=== PATIENT | male | born 1945 | race Caucasian/White ===

== ENCOUNTER 2016-08-09 04:48 | Inpatient (IN) | payer OTHER, MEDICARE ==
[~2016-08-09] VITALS: Ht 185.4 cm; Wt 120.2 kg
[~2016-08-09 04:48] MED LIST: ADVAIR DISKUS1 UNIT INH; ALBUTEROL1.25 MG/3 INH/SOL; ASPIRIN EC81 M1 PO; BREO ELLIPTA1 POW INH; CIPRO 500MG TA500 MG PO; LIPITOR40 M1 PO; PERCOCET 325 MG1 TA2 PO; PREDNISONE1 MG PO; PROAIR HFA0.09 MG/Ac INH; ZOFRAN ODT4 MG SL; ZYRTEC ALLERGY10 MG PO
--- NOTE | 2016-08-09 04:59 | NUR ---
PT BIBA C/O WEAKNESS, N/V X 2 DAYS. PT ALSO HAS REDNESS, WARMTH AND SWELLING TO R ARM S/P BUMPING INTO DOOR ON FRIDAY.
[2016-08-09] MEDS ORDERED: ADVAIR 500-501 EACH INH (05:00)
[2016-08-09] MEDS ORDERED: METFORMIN HCL750 M1 PO (05:01)
[2016-08-09] MEDS ORDERED: AMLODIPINE BESYL5 M1 PO (05:02)
[2016-08-09] MEDS ORDERED: GABAPENTIN300 M2 PO (05:03)
[2016-08-09] MEDS ORDERED: IBUPROFEN800 M1 (05:04)
--- NOTE | 2016-08-09 05:21 | NUR ---
PORTABLE CHEST XRAY BEING DONE AT BEDSIDE
[2016-08-09 05:36] LABS: ABSOLUTE BASOPHIL COUNT 0.2 /CUMM (0.0-0.2); ABSOLUTE EOSINOPHIL COUNT 0.3 /CUMM (0.0-0.7); ABSOLUTE GRANULOCYTE CT 14.3 /CUMM (1.4-6.5); ABSOLUTE LYMPH COUNT 2.5 /CUMM (1.2-3.4); ABSOLUTE MONOCYTE COUNT 1.6 /CUMM (0.10-0.60); EOSINOPHIL % 1.6 % (0-5); GRANULOCYTE % 75.5 % (42.2-75.2); HEMATOCRIT 42.7 % (42-52); MEAN CORPUSCULAR HGB 31.4 PG (27.0-31.0); MEAN CORPUSCULAR HGB CONC 33.6 G/DL (33.0-37.0); MEAN CORPUSCULAR VOLUME 93.3 FL (80.0-94.0); PLATELET COUNT 177 /CUMM (130-400); RED BLOOD CELL CT 4.57 /CUMM (4.70-6.10); WHITE BLOOD CELL COUNT 18.9 /CUMM (4.8-10.8)
--- NOTE | 2016-08-09 05:37 | ED GENERAL ADULT ---
History of Present Illness General Chief Complaint: Nausea, Vomiting, Diarrhea Stated Complaint: BIBA N/V Source: patient, family, old records, EMS Exam Limitations: no limitations Vital Signs & Intake/Output Vital Signs & Intake/Output Vital Signs Date Time Temp Pulse Resp B/P Pulse O2 O2 Flow FiO2 Ox Delivery Rate 08/09 0711 100.0 88 26 147/66 89 Room Air 08/09 0505 Room Air 08/09 0453 100.0 83 20 137/72 93 Room Air Allergies Coded Allergies: Penicillins (Severe, SWELLING 08/09/16) amoxicillin (Severe, HIVES, RASH, NAUSEA 08/09/16) azithromycin (UNKNOWN 08/09/16) erythromycin base (UNKNOWN 08/09/16) Reconcile Medications Amlodipine Besylate 5 MG TABLET 1 TAB PO DAILY BLOOD PRESSURE (Reported) Aspirin (Ecotrin) 81 MG TABLET.DR 2 TAB PO DAILY HEART HEALTH (Reported) Atorvastatin Calcium (Lipitor) 40 MG TABLET 1 TAB PO DAILY CHOLESTEROL ( Reported) Fluticasone/Salmeterol (Advair 500-50 Diskus) 500 MCG-50 MCG/DOSE BLST.W.DEV 1 PUF INH BID COPD (Reported) Gabapentin 300 MG CAPSULE 1 CAP PO TID NEUROPATHY (Reported) Ibuprofen 800 MG TABLET PAIN (Reported) Metformin HCl (Metformin HCl ER) 750 MG TAB.ER.24H 1 TAB PO BID DIABETES ( Reported) Prednisone 1 MG TABLET 7 MG PO DAILY COPD (Reported) Core Measure Meds Pre-Hospital aspirin Triage Note: PT BIBA C/O WEAKNESS, N/V X 2 DAYS. PT ALSO HAS REDNESS, WARMTH AND SWELLING TO R ARM S/P BUMPING INTO DOOR ON FRIDAY. Triage Nurses Notes Reviewed? yes Onset: 2 days Duration: day(s):, constant, continues in ED, getting worse Timing: recent history Injury Environment: home Severity: moderate Modifying Factors: Improves With: immobilization. Worsens With: movement. Associated Symptoms: back pain HPI: 1 week prior to admission patient began having increased back pain from spinal stenosis with increasing gabapentin dosage. He is become increasingly sleepy with more bed rest. 2 days prior to admission he struck his right shoulder edge of a door with subsequent redness to the area nausea vomiting decreased appetite and increasing weakness now unable to ambulate. There's been no diarrhea abdominal pain chest pain cough shortness of breath headache dysuria bleeding. Past History Travel History Traveled to [place] past 21 day No Medical History Any Pertinent Medical History? see below for history Neurological: NONE EENT: NONE Cardiovascular: NONE, myocardial infarction Respiratory: COPD Gastrointestinal: NONE Hepatic: NONE Renal: NONE Musculoskeletal: rheumatoid arthritis, spinal stenosis Psychiatric: NONE Endocrine: diabetes Blood Disorders: NONE Cancer(s): NONE RN CIRCULATING/Reproductive: NONE Influenza Vaccine: 12/10/13 Surgical History Surgical History: non-contributory Psychosocial History What is your primary language Finnish Tobacco Use: Quit >30 days ago ETOH Use: denies use Family History Hx Contributory? No Review of Systems Review of Systems Constitutional: Reports: see HPI, malaise, weakness. EENTM: Reports: no symptoms. Respiratory: Reports: see HPI, cough. Cardiovascular: Reports: no symptoms. GI: Reports: see HPI, nausea, vomiting. Genitourinary: Reports: no symptoms. Musculoskeletal: Reports: see HPI, back pain. Skin: Reports: see HPI, rash. Neurological/Psychological: Reports: no symptoms. Hematologic/Endocrine: Reports: no symptoms. Immunologic/Allergic: Reports: no symptoms. All Other Systems: Reviewed and Negative Physical Exam Physical Exam General Appearance: well developed/nourished, alert, awake, anxious, severe distress, obese Head: atraumatic, normal appearance Eyes: Bilateral: normal appearance, PERRL, EOMI. Ears, Nose, Throat: normal pharynx, dry mucous membranes Neck: normal inspection, supple, full range of motion, no midline tenderness Respiratory: chest non-tender, no respiratory distress, quiet respiration, decreased breath sounds Cardiovascular: regular rate/rhythm, normal peripheral pulses, norml femoral pulses equa Peripheral Pulses: 4+ carotid (R), 4+ carotid (L) Gastrointestinal: normal bowel sounds, soft, non-tender, no organomegaly Back: normal inspection, normal range of motion Extremities: normal capillary refill, normal range of motion, tenderness (R forearm) Neurologic/Psych: no motor/sensory deficits, awake, alert, oriented x 3, normal mood/affect, 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 Skin: rash (erythema over R forearm) Lymphatic: no anterior cervical crystal Core Measures ACS in differential dx? No CVA/TIA Diagnosis: No Severe Sepsis Present: No Septic Shock Present: No Progress Differential Diagnoses I considered the following diagnoses in my evaluation of the patient: Pneumonia cellulitis adverse medication reaction Plan of Care: Orders Procedure Date/time Status Consistent Carbohydrate 2 08/09 B Active LACTIC ACID 08/09 810 Active Patient Data 08/09 646 Active OXYGEN SETUP (GEN) 08/09 636 Active Saline Lock 08/09 636 Active Admit to inpatient 08/09 636 Active Vital Signs 08/09 636 Active Activity/Ambulation 08/09 636 Active Code Status 08/09 636 Active BLOOD CULTURE 08/09 510 Active URINALYSIS 08/09 510 Active LIPASE 08/09 510 Complete LACTIC ACID 08/09 510 Complete COMPREHENSIVE METABOLIC PANEL 08/09 510 Complete CBC WITHOUT DIFFERENTIAL 08/09 510 Complete EKG 08/09 510 Active Laboratory Tests 08/09/16 0510: Anion Gap 14, Estimated GFR > 60, BUN/Creatinine Ratio 22.0, Glucose 271 H, Lactic Acid 2.4 H, Calcium 9.5, Total Bilirubin 1.4 H, AST 22, ALT 53, Alkaline Phosphatase 66, Total Protein 7.0, Albumin 3.8, Globulin 3.2, Albumin/ Globulin Ratio 1.2, Lipase 356 H, CBC w Diff MAN DIFF ORDERED, RBC 4.57 L, MCV 93.3, MCH 31.4 H, RDW 13.0, MPV 10.0, Gran % 75.5 H, Lymphocytes % 13.4 L, Monocytes % 8.5, Eosinophils % 1.6, Basophils % 1.0, Absolute Granulocytes 14.3 H, Segmented Neutrophils 81 H, Absolute Lymphocytes 2.5, Lymphocytes 11 L, Monocytes 7, Absolute Monocytes 1.6 H, Eosinophils 1, Absolute Eosinophils 0.3, Absolute Basophils 0.2, Platelet Estimate ADEQUATE, Polychromasia 1+, Ovalocytes FEW, PUBS MCHC 33.6, Fld Total RBCs Counted 100 Microbiology 08/09 0505 BLOOD: Blood Culture - RECD 08/09 499 BLOOD: Blood Culture - RECD Diagnostic Imaging: Viewed by Me: Radiology Read. Discussed w/RAD: Radiology Read. CXR Impression: The retrocardiac airspace is not well visualized on this examination due to inherent limitations of AP portable technique. The possibility of left lower lobe pneumonia cannot be definitively excluded. Blunting of the left lateral costophrenic recess appears to be related to a prominent epicardial fat pad. Ideally a dedicated PA and lateral upright views of the chest should be obtained. Initial ED EKG: normal axis, normal intervals, normal p-waves, normal QRS complex, nonspecific ST T wave chg Prior EKG: unchanged Rhythm Strip: normal sinus rhythm Departure Departure Disposition: STILL A PATIENT Condition: Stable Clinical Impression Primary Impression: Cellulitis of arm, right Secondary Impressions: Dehydration Lactic acidosis Leukocytosis Qualifiers: Leukocytosis type: unspecified Qualified Code: D72.829 - Elevated white blood cell count, unspecified Nausea and vomiting Qualifiers: Vomiting type: unspecified Vomiting Intractability: non-intractable Qualified Code: R11.2 - Nausea with vomiting, unspecified Spinal stenosis Qualifiers: Spinal region: unspecified Qualified Code: M48.00 - Spinal stenosis , site unspecified Referrals: SHERRIE PALMA DO (PCP/Family) Departure Forms: Customer Survey General Discharge Information Admission Note Spoke With: JEREMIE JEFFERS,JOHN Documentation of Exam: Documentation of any treatments & extenuating circumstances including Concerns Regarding Discharge (functional status, medication knowledge or non-compliance, living conditions, etc.) that warrant an admission rather than observation: IV antibiotics IV steroids IV analgesia follow cultures medication adjustment continuing care discharge planning Critical Care Note Critical Care Note Critical Care Time: non-applicable
--- NOTE | 2016-08-09 05:48 | NUR ---
CRITICAL TEST RESULTS [id number] NICK UREÑA TESTS AND RESULTS: LACTIC = 2.4 Results received and read back by: MARIBELL STEVENS Results received date and time: 08/09/16 0548 The following provider was notified of the results, and read the results back: DR PERAZA Notified date and time: 08/09/16 at 0548
--- NOTE | 2016-08-09 05:57 | RADIOLOGY REPORT ---
EXAMINATION: XR PORTABLE CHEST CLINICAL INFORMATION: Pneumonia. Cough. Fever. Weakness. COMPARISON: Chest CT 02/09/2016. TECHNIQUE: Portable AP view of the chest was obtained. FINDINGS: The retrocardiac airspace cannot be definitively evaluated on this examination due to inherent limitations of AP portable technique. Specifically the possibility of a left lower lobe pneumonia cannot be definitively excluded. There is a prominent epicardial fat pad. No pleural effusion or pneumothorax. The cardiac silhouette and upper mediastinal contours are normal. No acute osseous finding. IMPRESSION: The retrocardiac airspace is not well visualized on this examination due to inherent limitations of AP portable technique. The possibility of left lower lobe pneumonia cannot be definitively excluded. Blunting of the left lateral costophrenic recess appears to be related to a prominent epicardial fat pad. Ideally a dedicated PA and lateral upright views of the chest should be obtained.
--- NOTE | 2016-08-09 07:02 | NUR ---
2ND AND 3RD LITERS INFUSING NOW
--- NOTE | 2016-08-09 07:02 | History & Physical ---
YOBANY ROACH 08/09/16 0702: General Information and HPI MD Statement: I have seen and personally examined NICK UREÑA and documented this H&P. The patient is a 71 year old M who presented with a patient stated chief complaint of [rednes of his right arm, increased lethargy]. Source of Information: patient, old records Exam Limitations: no limitations History of Present Illness: Mr. Ureña is a 71-year-old gentleman with a PMH of CAD s/p OR 1986 and cardiac catheterization, DM, HTN, HLD, COPD not on home O2, asthma, spinal stenosis, diverticulosis, tubular villous adenoma, nephrolithiasis S/P lithotripsy and stent placement (2014) who presented with complaints of right arm redness, swelling and lethargy. He reports hitting his elbow against a hard surface 5 days ago with noticeable pain and redness around the elbow. Alternating warm/cold compresses provided minimal relief. He denied any significant limitations in range of motion around the joint. Over the past few days he endorses increased erythema but denies any fevers or chills associated with this. Incidentally he saw his PCP yesterday at which point his gabapentin was increased from 300 mg TID up to 600 mg TID for his persistent back pain secondary to spinal stenosis. He became noticeably more lethargic last night unable to stay awake state evening. Out of concern for the redness and increased lethargy his called EMS. She thought that the symptoms in his arm may be secondary to a cat scratch but he denies recalling any such trauma. ROS: Chronic intermittent back pain, 2 episodes of nausea overnight. He denies any headache, dizziness, blurred vision, chest pain, palpitations, shortness of breath, vomiting, postprandial epigastric discomfort, changes in bowel/bladder habits him a numbness/weakness in his right upper extremity. Allergies/Medications Allergies: Coded Allergies: Penicillins (Severe, SWELLING 08/09/16) amoxicillin (Severe, HIVES, RASH, NAUSEA 08/09/16) azithromycin (UNKNOWN 08/09/16) erythromycin base (UNKNOWN 08/09/16) Home Med list Amlodipine Besylate 5 MG TABLET 1 TAB PO DAILY BLOOD PRESSURE (Reported) Aspirin (Ecotrin*) 81 MG TABLET.DR 2 TAB PO DAILY HEART HEALTH (Reported) Atorvastatin Calcium (Lipitor) 40 MG TABLET 1 TAB PO DAILY CHOLESTEROL ( Reported) Fluticasone/Salmeterol (Advair 500-50 Diskus) 500 MCG-50 MCG/DOSE BLST.W.DEV 1 PUF INH BID COPD (Reported) Gabapentin 300 MG CAPSULE 1 CAP PO TID NEUROPATHY (Reported) Ibuprofen 800 MG TABLET PAIN (Reported) Metformin HCl (Metformin HCl ER) 750 MG TAB.ER.24H 1 TAB PO BID DIABETES ( Reported) Prednisone 10 MG TABLET 1 TAB PO DAILY COPD (Reported) Past History Travel History Traveled to [place] past 21 day No Medical History Neurological: NONE EENT: NONE Cardiovascular: NONE, myocardial infarction Respiratory: COPD Gastrointestinal: NONE Hepatic: NONE Renal: NONE Musculoskeletal: rheumatoid arthritis, spinal stenosis Psychiatric: NONE Endocrine: diabetes Blood Disorders: NONE Cancer(s): NONE EXTENDER/Reproductive: NONE Influenza Vaccine: 12/10/13 Surgical History Surgical History: non-contributory Past Family/Social History Psychosocial History ETOH Use: denies use Review of Systems Review of Systems Constitutional: Reports: see HPI. EENTM: Reports: no symptoms. Cardiovascular: Reports: no symptoms. Respiratory: Reports: no symptoms. GI: Reports: see HPI. Genitourinary: Reports: no symptoms. Musculoskeletal: Reports: see HPI. Skin: Reports: see HPI. Neurological/Psychological: Reports: no symptoms. Exam & Diagnostic Data Last 24 Hrs of Vital Signs/I&O Vital Signs Date Time Temp Pulse Resp B/P Pulse O2 O2 Flow FiO2 Ox Delivery Rate 08/09 0854 99.2 08/09 0711 100.0 88 26 147/66 89 Room Air 08/09 0505 Room Air 08/09 0453 100.0 83 20 137/72 93 Room Air Intake & Output 08/09 1600 08/09 0800 08/09 0000 Intake Total 1000 0 Output Total Balance 1000 0 Intake, IV 1000 Intake, Oral 0 Patient 264 lb Weight Physical Exam General Appearance Alert, Cooperative, No Acute Distress Skin diffuse erythema over the lateral aspect of his right forearm, nonfluctuant , slightly raised, no exquisite tenderness to palpation, well defined margins, measuring approximately 5cm X 20cm HEENT EOMI, Mucous Membr. moist/pink Cardiovascular Regular Rate, Normal S1, Normal S2, occasional skip beats Lungs Normal Air Movement, distant breath sounds Abdomen Normal Bowel Sounds, Soft, No Tenderness, distended abdomen with no tenderness to palpation Neurological Normal Speech, Strength at 5/5 X4 Ext, Normal Tone Extremities Normal Pulses, 1+ pitting edema bilateral lower extremities Vascular Pulses Symmetrical Last 24 Hrs of Labs/Eliecre: Laboratory Tests 08/09/16 0847: Lactic Acid 0.8 08/09/16 0510: Anion Gap 14, Estimated GFR > 60, BUN/Creatinine Ratio 22.0, Glucose 271 H, Lactic Acid 2.4 H, Calcium 9.5, Total Bilirubin 1.4 H, AST 22, ALT 53, Alkaline Phosphatase 66, Troponin I 0.03, Total Protein 7.0, Albumin 3.8, Globulin 3.2, Albumin/Globulin Ratio 1.2, Lipase 356 H, CBC w Diff MAN DIFF ORDERED, RBC 4.57 L, MCV 93.3, MCH 31.4 H, RDW 13.0, MPV 10.0, Gran % 75.5 H, Lymphocytes % 13.4 L, Monocytes % 8.5, Eosinophils % 1.6, Basophils % 1.0, Absolute Granulocytes 14.3 H, Segmented Neutrophils 81 H, Absolute Lymphocytes 2.5, Lymphocytes 11 L, Monocytes 7, Absolute Monocytes 1.6 H, Eosinophils 1, Absolute Eosinophils 0.3, Absolute Basophils 0.2, Platelet Estimate ADEQUATE, Polychromasia 1+, Ovalocytes FEW, PUBS MCHC 33.6, Fld Total RBCs Counted 100 Microbiology 08/09 0505 BLOOD: Blood Culture - RECD 08/09 0500 BLOOD: Blood Culture - RECD Diagnostic Data EKG Results Sinus tachycardia, HR 107,. Ventricular premature complexes. Probable inferior infarct, age indeterminate. Consider. MA interval 136. QTC 438 CXR Results The retrocardiac airspace is not well visualized on this examination due to inherent limitations of AP portable technique. The possibility of left lower lobe pneumonia cannot be definitively excluded. Blunting of the left lateral costophrenic recess appears to be related to a prominent epicardial fat pad. Ideally a dedicated PA and lateral upright views of the chest should be obtained. Assessment/Plan Assessment: 71-year-old gentleman with a PMH of CAD s/p OR 1986 and cardiac catheterization, DM, HTN, HLD, COPD not on home O2, asthma, spinal stenosis, diverticulosis, tubular villous adenoma, nephrolithiasis S/P lithotripsy and stent placement ( 2014) who presented with complaints of right arm redness, swelling and lethargy. VS on admission: BP 137/72, HR 83, RR 20, SPO2 93% on RA, T 100.0 Pertinent labs: WBC 18.9, H&H 14.4/42.7, platelets 177, sodium 135, potassium 3.8, chloride 96, BUN/CR 22/1.0, glucose 271 Lactic acid: 2.0 T bilirubin: 1.4 Lipase: 356 Problem list: 1. Erythma and swelling of the RUE. DDx cellulitis vs lymphedema 2. Increased lethargy 3. Elevated lactic acid 4. SIRS criteria: WBC 18.9, RR 26. Sepsis guidelines 5. Elevated bilirubin and lipase 6. ST depressions V2/V3 with history of CAD 7. Diabetes 8. Hypertension 9. COPD/asthma 10. Spinal stenosis with chronic back pain Plan: 1. Cellulitis of right upper extremity in the setting of trauma & skwin breakdown * No evidence of hemarthrosis/point tenderness of the right elbow to justify imaging at this time. Follow up blood cultures * In the setting of multiple anabiotic allergies, will start him on IV clindamycin * Follow up blood Cx * Duration of therapy will likely be 10-14 days * We jenni monitor for diarrhea while on clindamycin 2. Increased lethargy * This can be attributed to his increased dosage of gabapentin. We'll continue to hydrate and maintain the patient on his previous dose of 300 mg TID * Physical therapy to assess patient 3. Elevated lactic acid * Repeat lactic acid 0.8. Resolved s/p 4 L crystalloid resuscitation 4. SIRS criteria: WBC 18.9, RR 26 * Follow blood cultures in the setting of possible cellulitis. However, leukocytosis could also be attributed to demargination in the setting of maintenance prednisone 10 mg * Repeat lactic acid down to 0.8 * Continue with doxycycline 5. Elevated bilirubin and lipase * Patients mother in her 50s of complications of ?? Gallbladder CA. Sister had her gallbladder taken out early age due to gallstones * Elevation in bilirubin and lipase unclear at this time * Repeat in 24hrs. If continued increase, will consider abdominal US 6. ST depressions V2/V3 with history of CAD * Patient denies any exertional dyspnea, chest pain, symptoms of orthopnea or PND * Repeat EKG/troponin at 1100 * Cardiology follow-up. Patient currently not on beta kathi that he may benefit from 7. Diabetes * Accu-Cheks and low-dose sliding scale 8. Hypertension * Continue home dose amlodipine 5 mg stable 9. COPD/asthma * Advair substituted with Symbicort * TRCs * Continue with prednisone 10 mg maintenance 10. Spinal stenosis with chronic back pain * We'll continue the patient on gabapentin 300 mg TID * Physical therapy evaluation Diet: Consistent carbohydrate 3 DVT prophylaxis: Lovenox 40 mg subcutaneous Full code As Ranked By This Provider Problem List: 1. Cellulitis of arm, right 2. Lactic acidosis 3. Lethargy 4. SIRS (systemic inflammatory response syndrome) Core Measures/Miscellaneous Acute Coronary Syndrome ACS Diagnosis: No Cerebrovascular Accident CVA/TIA Diagnosis: No Congestive Heart Failure CHF Diagnosis: No Venous Thromboembolism VTE Risk Factors: Age > 40 No [facility] VTE prophylaxis d/t: No contraindications No VTE Pharm Prophylaxis d/t: No contraindications VTE Diagnosis: No VTE Type: NONE VTE Confirmed by (Test): NONE Severe Sepsis Severe Sepsis Present: No Septic Shock Septic Shock Present: No Miscellaneous Documentation Attending Case Discussed With: JOHN CHAO MD Primary Care Physician: SHERRIE PALMA DO Patient sees these Specialists Lino Hernandez MD (pulmonology) Dr. Balbuena (cardiology) Dr. Emanuel (orthopedics) Level of Patient Care: General Medicine Resident Review Statement Resident Statement: examined this patient, discussed with tax intern, agreed with tax intern, discussed with family, reviewed EMR data (avail), discussed with nursing , reviewed images GASTON MALDONADO MD 08/09/16 1426: Attending MD Review Statement Attending Statement Attending MD Statement: examined this patient, discuss w/resident/PA/HYDRO OPERATOR, agreed w/resident/PA/HYDRO OPERATOR, discussed with family, reviewed EMR data (avail), discussed with nursing, discussed with case mgmt, reviewed images Attending Assessment/Plan: 71-year-old male who takes metformin for diabetes and chronic prednisone dependence for COPD who is here with right forearm redness and swelling. This all happened after some trauma of bumping his hand. The redness and erythema is diffuse and crosses the elbow joint into his upper arm but he has no restriction of range of motion of his elbow joint. It appears to be all the skin and soft tissue infection with no septic arthritis or bursitis. He's pen allergic and reports anaphylaxis to penicillin although from what we can seen 2002 he does appear to have gotten 1 dose of ceftriaxone. However I'm not completely sure as that was 2002 and his thinks that he got short of breath after getting that so we will err on the safe side and get blood cultures and start him on IV clindamycin. That will cover staph and strep for a straightforward cellulitis. He is chronically prednisone-dependent and has leukocytosis so we'll need to watch that and continue his usual steroid dose. Fingersticks and insulin sliding scale, he was hydrated for his sepsis criteria and appears to be better from that standpoint. We'll get an x-ray of the elbow joint is to make sure there is no effusion, DVT prophylaxis and follow closely.
--- NOTE | 2016-08-09 07:50 | NUR ---
RECEIVED REPORT ON PT AND NOTED RESTING ON STRETCHER WITH NS INFUSING PT DENIES ANY COMPLAINTS AT PRESENT AND AWARE WE NEED A URINE SAMPLE. SPOUSE AT BEDSIDE WITH PT
--- NOTE | 2016-08-09 07:50 | NUR ---
PT'S O2 SAT 85% ON RA WHEN FALLING ASLEEP. PT PLACED ON 2L NC OXYGEN WITH IMPROVEMENT TO 93%. WILL CONTINUE TO MONITOR.
--- NOTE | 2016-08-09 08:01 | NUR ---
PT HAS IV FOURTH LITER INFUSING
--- NOTE | 2016-08-09 08:30 | NUR ---
HOUSE STAFF AT BEDSIDE TO EVAL PT
--- NOTE | 2016-08-09 08:48 | NUR ---
REPEAT LACTIC SENT
[2016-08-09] MEDS ORDERED: PREDNISONE10 M2 PO ×2 (08:50→15:11)
--- NOTE | 2016-08-09 09:50 | NUR ---
FOOD TRAY HAS BEEN ORDERED BY JUNE LEXY
[2016-08-09 10:46] VITALS: BP 128/60
--- NOTE | 2016-08-09 12:35 | NUR ---
PT WAS EVALUATED BY PHYSICAL THERAPY
--- NOTE | 2016-08-09 12:50 | NUR ---
PT MEDICATED ORDERED WITH INSULIN AND ALSO WAS GIVEN MEAL TRAY
--- NOTE | 2016-08-09 14:08 | NUR ---
PT GIVEN MEAL TRAY
--- NOTE | 2016-08-09 14:26 | Admission Certification ---
Admission Certification Certification Statement - As attending physician, I certify that at the time of - admission, based on clinical presentation, severity of - symptoms, need for further diagnostic testing and - therapeutic interventions, and risk of adverse outcomes - without in-hospital treatment, in my clinical assessment, - this patient requires an acute hospital stay for a minimum - of two nights or longer. I have also considered psychsocial - factors such as support system, advanced age, financial - issues, cognitive issues, and failed out-patient treatments, - past re-admission history, safety of patient, and lack of - compliance as applicable. Specific rationale supporting this admission is: Acute cellulitis in a diabetic with prednisone-dependent needs IV antibiotics.
[2016-08-09 14:39] VITALS: BP 107/55
--- NOTE | 2016-08-09 14:47 | NUR ---
PT ADMITTED TO ROOM [id number]
--- NOTE | 2016-08-09 15:10 | RADIOLOGY REPORT ---
EXAMINATION: XR ELBOW, RIGHT CLINICAL INFORMATION: Pain and swelling. Diffuse erythema to the elbow and forearm. COMPARISON: None TECHNIQUE: AP and lateral views of the right elbow. FINDINGS: There is no evidence of acute fracture or dislocation. No definite evidence to suggest joint effusion. Soft tissue swelling is noted over the posterior aspect of the distal humerus, elbow extending into the forearm. Small ossific/calcific densities adjacent to the bilateral humeral epicondyles reflect degenerative changes or changes of calcific tendinitis. No evidence of radiopaque foreign body or soft tissue air. IMPRESSION: No evidence of acute fracture or dislocation in the right elbow, visualized distal humerus and proximal radius and ulna. Degenerative changes at the elbow. Soft tissue swelling over the posterior aspect of the elbow, distal arm and proximal forearm. No convincing radiographic evidence of joint effusion.
--- NOTE | 2016-08-09 15:47 | NUR ---
PT MEDICATED ORDERED AND ATTEMPTING TO GIVE REPORT TO NURSE
[2016-08-09 22:10] VITALS: BP 130/70
--- NOTE | 2016-08-09 23:22 | NUR ---
AT APPROX 2100. PT BLOOD SUGAR 468. NO BEDTIME COVERAGE ORDERED AT THIS TIME. MD ESCOBAR MADE AWARE. AND 8 UNITS NOVOLOG WAS ORDERED AND ADMINISTERED. PER MD, TO RE-CHECK BLOOD SUGAR TWO HOURS AFTER ADMINISTRATION OF INSULIN. WILL CONT TO CLOSELY MONITOR.
[2016-08-10 06:58] VITALS: BP 130/70
[2016-08-10 08:16] LABS: ABSOLUTE BASOPHIL COUNT 0 /CUMM (0.0-0.2); ABSOLUTE EOSINOPHIL COUNT 0 /CUMM (0.0-0.7); ABSOLUTE GRANULOCYTE CT 18.9 /CUMM (1.4-6.5); ABSOLUTE LYMPH COUNT 1.4 /CUMM (1.2-3.4); ABSOLUTE MONOCYTE COUNT 1.6 /CUMM (0.10-0.60); BASOPHIL % 0 % (0.0-2.0); EOSINOPHIL % 0.1 % (0-5); GRANULOCYTE % 86.3 % (42.2-75.2); HEMATOCRIT 40.2 % (42-52); MEAN CORPUSCULAR HGB 31.1 PG (27.0-31.0); MEAN CORPUSCULAR HGB CONC 33.2 G/DL (33.0-37.0); MEAN CORPUSCULAR VOLUME 93.9 FL (80.0-94.0); MEAN PLATELET VOLUME 10.3 FL (7.4-10.4); PLATELET COUNT 220 /CUMM (130-400); RBC DISTRIBUTION WIDTH 13.1 % (11.5-14.5); RED BLOOD CELL CT 4.28 /CUMM (4.70-6.10)
--- NOTE | 2016-08-10 08:43 | PN- Housestaff ---
KARL SORENSON 08/10/16 0843: Subjective Follow-up For: right arm cellulitis Complaints: no complaints Subjective: Patient was seen and examined this morning. He was sitting comfortably in bed without any complaints. Area of his cellulitis on right arm is better than yesterday. At any joint pain or restrictor joint movement. He remained afebrileher WBC count is elevated to21.9 from 18.9. Review of Systems Constitutional: Denies: chills, diaphoresis, fever. Cardiovascular: Denies: chest pain, edema. Respiratory: Denies: cough, hemoptysis. Gastrointestinal: Denies: constipation, diarrhea. Genitourinary: Denies: dysuria, frequency. Objective Last 24 Hrs of Vital Signs/I&O Vital Signs Date Time Temp Pulse Resp B/P Pulse O2 O2 Flow FiO2 Ox Delivery Rate 08/10 0658 97.4 74 20 130/70 91 Room Air 08/09 2210 97.6 77 20 130/70 92 Room Air 08/09 2036 Room Air Room Air 08/09 1439 96.7 62 18 107/55 96 Room Air 08/09 1342 97.0 61 119/60 08/09 1046 96.5 70 19 128/60 95 Room Air 08/09 1033 97.0 80 18 123/78 96 Nasal 2.0L Cannula 08/09 0951 96.5 70 19 128/60 95 Room Air Intake & Output 08/10 1600 08/10 0800 08/10 0000 Intake Total 330 460 Output Total Balance 330 460 Intake, IV 90 100 Intake, Oral 240 360 Physical Exam General Appearance: Alert, Oriented X3, Cooperative, No Acute Distress Skin: right arm redness and cellulitis crossing the elbow without any joint restriction HEENT: Atraumatic, PERRLA Cardiovascular: Normal S1, Normal S2, No Murmurs Lungs: Normal Air Movement Abdomen: Soft Extremities: right arm cellulitis crossing elbow Current Medications: Current Medications Sig/Dalia Start time Last Medication Dose Route Stop Time Status Admin Acetaminophen 650 MG Q6P PRN 08/09 0900 AC PO Amlodipine Besylate 5 MG DAILY 08/09 1000 AC 08/09 PO 0940 Aspirin Buffered 162 MG DAILY 08/09 1000 AC 08/09 PO 0940 Atorvastatin Calcium 40 MG DAILY 08/09 1000 AC 08/09 PO 0940 Budesonide/ 2 PUF BID 08/09 1000 AC 08/09 Formoterol Fumarate INH 2224 Clindamycin 600 MG IQ8 08/09 1600 AC 08/10 Dextrose/Water 50 ML IV 0849 Enoxaparin Sodium 40 MG DAILY 08/09 1000 AC 08/09 SC 0940 Gabapentin 0 .STK-MED ONE 08/09 1533 DC PO Gabapentin 300 MG TID 08/09 1000 AC 08/09 PO 2224 Insulin Aspart 4 UNITS ONCE ONE 08/10 0030 DC 08/10 SC 08/10 0031 0023 Insulin Aspart 8 UNITS ONCE ONE 08/09 2130 DC 08/09 SC 08/09 2130 2225 Insulin Aspart 0 TIDAC 08/09 1200 AC 08/10 SC 0849 Oxycodone/ 1 TAB Q6P PRN 08/09 0900 AC Acetaminophen PO Oxycodone/ 2 TAB Q6P PRN 08/09 0900 AC Acetaminophen PO Prednisone 0 .STK-MED ONE 08/09 1533 DC PO Prednisone 10 MG DAILY 08/09 1512 AC 08/09 PO 1546 Last 24 Hrs of Lab/Eliecer Results Last 24 Hrs of Labs/Mics: Laboratory Tests 08/10/16 0700: Anion Gap 15, Estimated GFR > 60, BUN/Creatinine Ratio 35.6 H, CBC w Diff NO MAN DIFF REQ, RBC 4.28 L, MCV 93.9, MCH 31.1 H, RDW 13.1, MPV 10.3, Gran % 86.3 H, Lymphocytes % 6.4 L, Monocytes % 7.2, Eosinophils % 0.1, Basophils % 0 L, Absolute Granulocytes 18.9 H, Absolute Lymphocytes 1.4, Absolute Monocytes 1.6 H, Absolute Eosinophils 0, Absolute Basophils 0, PUBS MCHC 33.2 08/09/16 1123: Troponin I 0.02 08/09/16 1120: Urine Color YEL, Urine Clarity CLEAR, Urine pH 6.0, Ur Specific [place] 1.020, Urine Protein TRACE H, Urine Ketones 15 H, Urine Nitrite NEG, Urine Bilirubin NEG, Urine Urobilinogen 0.2, Ur Leukocyte Esterase NEG, Ur Microscopic SEDIMENT EXAMINED, Urine RBC 1-3, Ur Epithelial Cells FEW, Urine Bacteria FEW H, Urine Mucus MOD H, Urine Hemoglobin SMALL H, Urine Glucose >=1000 H Assessment/Plan Assessment: 1-year-old gentleman with a PMH of CAD s/p [place] 1986 and cardiac catheterization, DM, HTN, HLD, COPD not on home O2, asthma, spinal stenosis, diverticulosis, tubular villous adenoma, nephrolithiasis S/P lithotripsy and stent placement ( 2014) who presented with complaints of right arm redness, swelling and lethargy. VS on admission: BP 137/72, HR 83, RR 20, SPO2 93% on RA, T 100.0 Pertinent labs: WBC 18.9, H&H 14.4/42.7, platelets 177, sodium 135, potassium 3.8, chloride 96, BUN/CR 22/1.0, glucose 271 Lactic acid: 2.0 T bilirubin: 1.4 Lipase: 356 Problem list: 1. Erythma and swelling of the RUE. DDx cellulitis vs lymphedema 2. Increased lethargy 3. Elevated lactic acid 4. SIRS criteria: WBC 18.9, RR 26. Sepsis guidelines 5. Elevated bilirubin and lipase 6. ST depressions V2/V3 with history of CAD 7. Diabetes 8. Hypertension 9. COPD/asthma 10. Spinal stenosis with chronic back pain Plan: 1. Cellulitis vs lympedema of right upper extremity * No evidence of hemarthrosis/point tenderness of the right elbow to justify imaging at this time. Follow up blood cultures * In the setting of multiple anabiotic allergies, will maintain the patient on clindamycin 2. Increased lethargy * This can be attributed to his increased dosage of gabapentin. * Her gabapentin dose was reduced and patient is currently doing fine 3. Elevated lactic acid * Repeat lactic acid 0.8. Resolved s/p 4 L crystalloid resuscitation 4. SIRS criteria: WBC 21.9, RR 26 * Follow blood cultures in the setting of possible cellulitis. However, leukocytosis could also be attributed to demargination in the setting of maintenance prednisone 10 mg * Repeat lactic acid down to 0.8 * Continue with clindamycin 5. ST depressions V2/V3 with history of CAD * Patient denies any exertional dyspnea, chest pain, symptoms of orthopnea or PND * Repeat EKG/troponin at 1100 * Cardiology follow-up. Patient currently not on beta kathi that he may benefit from 8. Diabetes * Accu-Cheks and low-dose sliding scale 8. Hypertension * Continue home dose amlodipine 5 mg stable 9. COPD/asthma * Advair substituted with Symbicort * TRCs * Continue with prednisone 10 mg maintenance 10. Spinal stenosis with chronic back pain * We'll continue the patient on gabapentin 300 mg TID * Physical therapy evaluation Diet: Consistent carbohydrate 3 DVT prophylaxis: Lovenox 40 mg subcutaneous Full code Problem List: 1. Spinal stenosis 2. Cellulitis of arm, right Pain Ratin Pain Location: Right arm Pain Goal: Remain pain free Pain Plan: Percocet Tomorrow's Labs & Rationales: CBC and Bep DVT/Prophylaxis: pharmacological EDEN JEFFERS,AMIR 08/10/16 1115: Attending MD Review Statement Attending Statement Attending MD Statement: examined this patient, discuss w/resident/PA/FOOD AND BEVERAGE ASSISTANT, agreed w/resident/PA/FOOD AND BEVERAGE ASSISTANT, discussed with family, reviewed EMR data (avail), discussed with nursing Attending Assessment/Plan: Mr. Toledo was seen by me. Chart reviewed. Very pleasant elderly man, sitting comfortably. Currently reports improvement in his arm/elbow swelling and pain, denies f/c/n/v. VSS. remains afebrile on IV abx and tolerating it well. WBC remains elevated, so check CBC in am. If trending down can switch to PO abx and likely D/C
[2016-08-10 09:18] LABS: WHITE BLOOD CELL COUNT 21.9 /CUMM (4.8-10.8)
[2016-08-10 14:34] VITALS: BP 114/55
[2016-08-10 21:56] VITALS: BP 120/82
[2016-08-11 07:47] VITALS: BP 122/72
[2016-08-11 08:17] LABS: ABSOLUTE BASOPHIL COUNT 0 /CUMM (0.0-0.2); ABSOLUTE EOSINOPHIL COUNT 0.4 /CUMM (0.0-0.7); ABSOLUTE GRANULOCYTE CT 8.6 /CUMM (1.4-6.5); ABSOLUTE LYMPH COUNT 1.8 /CUMM (1.2-3.4); ABSOLUTE MONOCYTE COUNT 0.8 /CUMM (0.10-0.60); BASOPHIL % 0.2 % (0.0-2.0); EOSINOPHIL % 3.1 % (0-5); MEAN CORPUSCULAR HGB 31.6 PG (27.0-31.0); MEAN CORPUSCULAR HGB CONC 33.8 G/DL (33.0-37.0); MEAN CORPUSCULAR VOLUME 93.7 FL (80.0-94.0); MEAN PLATELET VOLUME 10.1 FL (7.4-10.4); PLATELET COUNT 169 /CUMM (130-400); RED BLOOD CELL CT 3.73 /CUMM (4.70-6.10); WHITE BLOOD CELL COUNT 11.6 /CUMM (4.8-10.8)
[2016-08-11 08:39] VITALS: BP 112/70
--- NOTE | 2016-08-11 10:29 | PN- Housestaff ---
Subjective Follow-up For: Right upper extremity cellulitis Complaints: getting better Subjective: Patient says he is getting better, is comfortable, vitals stable, no issues overnight. Rash over hand seems to have decreased. Review of Systems Constitutional: Reports: no symptoms. Cardiovascular: Reports: no symptoms. Respiratory: Reports: no symptoms. Gastrointestinal: Reports: no symptoms. Genitourinary: Reports: no symptoms. Musculoskeletal: Reports: see HPI. Skin: Reports: see HPI. Objective Last 24 Hrs of Vital Signs/I&O Vital Signs Date Time Temp Pulse Resp B/P Pulse O2 O2 Flow FiO2 Ox Delivery Rate 08/11 0839 80 112/70 08/11 0747 98.5 70 20 122/72 97 Room Air 08/10 2156 98.7 74 18 120/82 94 Room Air Intake & Output 08/11 1600 08/11 0800 08/11 0000 Intake Total 650 450 75 Output Total Balance 650 450 75 Intake, IV 50 90 75 Intake, Oral 600 360 Physical Exam General Appearance: Alert, Oriented X3, Cooperative, No Acute Distress Skin: decreased right upper extremity weakness Cardiovascular: Regular Rate, Normal S1, Normal S2 Lungs: Clear to Auscultation Abdomen: Normal Bowel Sounds, Soft, No Tenderness Current Medications: Current Medications Sig/Dalia Start time Last Medication Dose Route Stop Time Status Admin Acetaminophen 650 MG .STK-MED ONE 08/11 0733 DC PO 08/11 0734 Acetaminophen 650 MG Q6P PRN 08/09 0900 DCD 08/11 PO 0738 Amlodipine Besylate 5 MG DAILY 08/09 1000 DCD 08/11 PO 0839 Aspirin Buffered 162 MG DAILY 08/09 1000 DCD 08/11 PO 0834 Atorvastatin Calcium 40 MG DAILY 08/09 1000 DCD 08/11 PO 0834 Budesonide/ 2 PUF BID 08/09 1000 DCD 08/11 Formoterol Fumarate INH 0835 Clindamycin 600 MG IQ8 08/09 1600 DCD 08/11 Dextrose/Water 50 ML IV 0834 Enoxaparin Sodium 40 MG DAILY 08/09 1000 DCD 08/11 SC 0835 Gabapentin 300 MG TID 08/09 1000 DCD 08/11 PO 0835 Insulin Aspart 0 TIDAC/HS 08/10 2130 DCD 08/11 SC 1129 Insulin Aspart 0 TIDAC 08/10 2100 DC SC Insulin Aspart 0 TIDAC 08/09 1200 DC 08/10 SC 1749 Oxycodone/ 1 TAB Q6P PRN 08/09 0900 DCD Acetaminophen PO Oxycodone/ 2 TAB Q6P PRN 08/09 0900 DCD Acetaminophen PO Prednisone 10 MG DAILY 08/09 1512 DCD 08/11 PO 0835 Last 24 Hrs of Lab/Eliecer Results Last 24 Hrs of Labs/Mics: Laboratory Tests 08/11/16 0635: Anion Gap 5, Estimated GFR > 60, BUN/Creatinine Ratio 31.1 H, CBC w Diff NO MAN DIFF REQ, RBC 3.73 L, MCV 93.7, MCH 31.6 H, RDW 13.0, MPV 10.1, Gran % 74.0, Lymphocytes % 15.9 L, Monocytes % 6.8, Eosinophils % 3.1, Basophils % 0.2, Absolute Granulocytes 8.6 H, Absolute Lymphocytes 1.8, Absolute Monocytes 0.8 H, Absolute Eosinophils 0.4, Absolute Basophils 0, PUBS MCHC 33.8 Assessment/Plan Assessment: 71-year-old gentleman with a PMH of CAD s/p [place] 1986 and cardiac catheterization, DM, HTN, HLD, COPD not on home O2, asthma, spinal stenosis, diverticulosis, tubular villous adenoma, nephrolithiasis S/P lithotripsy and stent placement ( 2014) who presented with complaints of right arm redness, swelling and lethargy. VS on admission: BP 137/72, HR 83, RR 20, SPO2 93% on RA, T 100.0 Pertinent labs: WBC 18.9, H&H 14.4/42.7, platelets 177, sodium 135, potassium 3.8, chloride 96, BUN/CR 22/1.0, glucose 271 Lactic acid: 2.0 T bilirubin: 1.4 Lipase: 356 Problem list: 1. Erythma and swelling of the RUE. DDx cellulitis vs lymphedema 2. Increased lethargy 3. Elevated lactic acid 4. SIRS criteria: WBC 18.9, RR 26. Sepsis guidelines 5. Elevated bilirubin and lipase 6. ST depressions V2/V3 with history of CAD 7. Diabetes 8. Hypertension 9. COPD/asthma 10. Spinal stenosis with chronic back pain Plan: 1. Cellulitis vs lympedema of right upper extremity * Patient was on IV clindamycin, is improving, and can be sent home with by mouth clindamycin. * His blood is positive for coag negative staph aureus, which is possibly a contamination 2. Increased lethargy * This can be attributed to his increased dosage of gabapentin. * His gabapentin dose was reduced and patient is currently doing fine 3. Elevated lactic acid * Repeat lactic acid 0.8. Resolved s/p 4 L crystalloid resuscitation 4. SIRS criteria: WBC 21.9, RR 26 * Follow blood cultures in the setting of possible cellulitis. However, leukocytosis could also be attributed to demargination in the setting of maintenance prednisone 10 mg * Repeat lactic acid down to 0.8 * Clindamycin changed from IV to by mouth today 5. ST depressions V2/V3 with history of CAD * Patient denies any exertional dyspnea, chest pain, symptoms of orthopnea or PND * Cardiology follow-up as outpatient 8. Diabetes * Accu-Cheks and low-dose sliding scale 8. Hypertension * Continue home dose amlodipine 5 mg stable 9. COPD/asthma * Advair substituted with Symbicort * TRCs * Continue with prednisone 10 mg maintenance 10. Spinal stenosis with chronic back pain * We'll continue the patient on gabapentin 300 mg TID * Physical therapy evaluation Diet: Consistent carbohydrate 3 DVT prophylaxis: Lovenox 40 mg subcutaneous Full code Problem List: 1. Cellulitis of arm, right Pain Ratin Pain Location: Right upper extremity Pain Goal: Pain 4 or less Pain Plan: prn Tomorrow's Labs & Rationales: -
[2016-08-11] MEDS ORDERED: CLINDAMYCIN HC300 M1 PO (11:45)
--- NOTE | 2016-08-11 11:49 | Patient Discharge Instructions ---
Discharge Instructions General Discharge Information You were seen/treated for: Right upper extremity cellulitis Special Instructions: Follow-up with her primary care physician within 7-10 days of discharge. Return to emergency if symptoms worsen. Please take your antibiotics for a total of 10 days, including orally for the next 7 days +1 dose. A rolling walker has been prescribed to you. Please collected from your pharmacy. Diet Continue normal diet: No Recommended Diet: Diabetic Activity Full Activity/No Limits: Yes Activity Self Limited: Yes Acute Coronary Syndrome Inclusion Criteria At DC or during hospital stay patient has or had the following: ACS DIAGNOSIS No Discharge Core Measures Meds if any: Prescribed or Continued at Discharge Meds if any: NOT Prescribed or Continued at Discharge Congestive Heart Failure Inclusion Criteria At DC or during hospital stay patient has or had the following: CHF DIAGNOSIS No Discharge Core Measures Meds if any: Prescribed or Continued at Discharge Meds if any: NOT Prescribed or Continued at Discharge Cerebrovascular accident Inclusion Criteria At DC or during hospital stay patient has or had the following: CVA/TIA Diagnosis No Discharge Core Measures Meds if any: Prescribed or Continued at Discharge Meds if any: NOT Prescribed or Continued at Discharge Venous thromboembolism Inclusion Criteria VTE Diagnosis No VTE Type NONE VTE Confirmed by (Test) NONE Discharge Core Measures - Per Current guidelines, there needs to be overlap - treatment for the first 5 days of Warfarin therapy. - If discharged on Warfarin prior to 5 days of - overlap therapy, the patient will need to be - assessed for post discharge needs including - *Post discharge parental anticoagulation - *Warfarin and/or parental anticoagulation education - *Follow up date to check INR post discharge At least 5 days overlap therapy as Inpatient No Meds if any: Prescribed or Continued at Discharge Note: Overlap Therapy is Warfarin and Anticoagulant Meds if any: NOT Prescribed or Continued at Discharge
--- NOTE | 2016-09-05 18:37 | Discharge Summary ---
Visit Information Visit Dates Admission Date: 08/09/16 Discharge Date: 08/11/16 Hospital Course Course Attending Physician: JOHN CHAO MD [facility]: 71-year-old gentleman with a PMH of CAD s/p [place] 1986 and cardiac catheterization, DM, HTN, HLD, COPD not on home O2, asthma, spinal stenosis, diverticulosis, tubular villous adenoma, nephrolithiasis S/P lithotripsy and stent placement ( 2014) who presented with complaints of right arm redness, swelling and lethargy. VS on admission: BP 137/72, HR 83, RR 20, SPO2 93% on RA, T 100.0 Pertinent labs: WBC 18.9, H&H 14.4/42.7, platelets 177, sodium 135, potassium 3.8, chloride 96, BUN/CR 22/1.0, glucose 271; Lactic acid: 2.0; T bilirubin: 1.4 ; Lipase: 356 Problem list: 1. Erythma and swelling of the RUE. Cellulitis 2. Increased lethargy 3. Sepsis: Elevated lactic acid, WBC 18.9, RR 26. 4. Elevated bilirubin and lipase 5. ST depressions V2/V3 with history of CAD 6. Diabetes 7. Hypertension 8. COPD/asthma 9. Spinal stenosis with chronic back pain Plan: # Sepsis, secondary to cellulitis of right upper extremity * Fulfilled SIRS criteria with leukocytosis, elevated lactic acid, Patient improved on IV clindamycin, so was discharged home with PO Clindamycin. His blood was positive for coag negative staph aureus, which is possibly a contamination # Increased lethargy * This can be attributed to his increased dosage of gabapentin. His gabapentin dose was reduced and patient is currently doing better. # ST depressions V2/V3 with history of CAD * Patient denied any exertional dyspnea, chest pain, symptoms of orthopnea or PND. Can follow-up with Cardiology as outpatient CHRONIC ISSUES: # Diabetes * Had regular Accu-Cheks and low-dose sliding scale, controlled sugar # Hypertension * Continued home dose amlodipine 5 mg, had stable BP readings # COPD/asthma * Advair substituted with Symbicort, TRCs placed, continued with prednisone 10 mg maintenance, which could also have been the cause of leukocytosis. # Spinal stenosis with chronic back pain * Continued gabapentin. Physical therapy consultation done. Diet: Consistent carbohydrate 3 DVT prophylaxis: Lovenox 40 mg subcutaneous Full code Allergies: Coded Allergies: Penicillins (Severe, SWELLING 08/09/16) amoxicillin (Severe, HIVES, RASH, NAUSEA 08/09/16) azithromycin (UNKNOWN 08/09/16) erythromycin base (UNKNOWN 08/09/16) Disposition Summary Disposition Principal Diagnosis: Right upper extremity cellulitis Additional Diagnosis: CAD s/p [place] 1986 and cardiac catheterization, DM, HTN, HLD, COPD not on home O2, asthma, spinal stenosis, diverticulosis, tubular villous adenoma, nephrolithiasis S/P lithotripsy and stent placement (2014) Discharge Disposition: home or self care Discharge Instructions General Discharge Information Code Status: Full Code Patient's Diet: Diabetic diet Patient's Activity: As tolerated, using a rolling walker Follow-Up Instructions/Appts: Follow-up with her primary care physician within 7-10 days of discharge. Return to emergency if symptoms worsen. Please take your antibiotics for a total of 10 days, including orally for the next 7 days +1 dose. A rolling walker has been prescribed to you. Please collected from your pharmacy. Medications at Discharge Discharge Medications: Stop taking the following medications: Prednisone (Prednisone) 1 MG TABLET ORAL DAILY Continue taking these medications: Atorvastatin Calcium (Lipitor) 40 MG TABLET 1 Tablet ORAL DAILY Comments: Last Taken:08/11/16 Time:0900 Aspirin (Ecotrin*) 81 MG TABLET.DR 2 Tablet ORAL DAILY Comments: Last Taken:08/11/16 Time:0900 Fluticasone/Salmeterol (Advair 500-50 Diskus) 500 MCG-50 MCG/DOSE BLST.W.DEV 1 Puff Inhale through mouth TWICE DAILY Qty = 60 Comments: Last Taken: NOT GIVEN IN HOSPITAL Time: Metformin HCl (Metformin HCl ER) 750 MG TAB.ER.24H 1 Tablet ORAL TWICE DAILY Qty = 90 Comments: Last Taken:NOT GIVEN IN HOSPITAL Time: Amlodipine Besylate (Amlodipine Besylate) 5 MG TABLET 1 Tablet ORAL DAILY Qty = 90 Comments: Last Taken:08/11/16 Time:0900 Gabapentin (Gabapentin) 300 MG CAPSULE 1 Capsule ORAL THREE TIMES DAILY Qty = 90 Comments: Last Taken:4/2/17 Time:0900 Ibuprofen (Ibuprofen) 800 MG TABLET Qty = 60 Comments: Last Taken:NOT GIVEN IN HOSPITAL Time: Prednisone (Prednisone) 10 MG TABLET 1 Tablet ORAL DAILY Qty = 30 Comments: Last Taken:08/11/16 Time:0900 Start taking the following new medications: Clindamycin HCl (Clindamycin HCl) 300 MG CAPSULE 1 Capsule ORAL THREE TIMES DAILY Qty = 22 No Refills Comments: Last Taken:NOT GIVEN IN HOSPITAL Time: Copies To: SHERRIE PALMA DO
== END 2016-08-11 14:11 | DRG 603 ==
LOC: ENRESERVTM → ENRESERVDT → ERH 04:48 → ENPENDDIS 06:37 → ERHI 06:37 → 2NA 16:28
PROVIDERS: Emergency Medicine; Internal Medicine; ADMIT Internal Medicine
DX: L03.113 Cellulitis of right upper limb (principal); E87.2 Acidosis; E11.9 Type 2 diabetes mellitus without complications; J44.9 Chronic obstructive pulmonary disease, unspecified; I10 Essential (primary) hypertension; J45.909 Unspecified asthma, uncomplicated; I25.10 Atherosclerotic heart disease of native coronary artery without angina pectoris; Z79.84 Long term (current) use of oral hypoglycemic drugs; I25.2 Old myocardial infarction; M48.00 Spinal stenosis, site unspecified; G89.29 Other chronic pain; M54.9 Dorsalgia, unspecified
CPT/HCPCS: 2NAP; 73070-RT; 81001; 82436; 87040; 87147; 93005; 93010; 96361; 96374; 96375; 97116-GO; 97161-GP; J1650; J1815; J1885; J2930; J3490; J7512